=== PATIENT | female | born 1970 | race Caucasian/White ===

== ENCOUNTER → 2024-08-16 13:45 | Outpatient (REF) | payer OTHER, SELFPAY | LOC: PET 13:45 | PROVIDERS: ATTENDING PHYSICIAN Internal Medicine Interventional Cardiology | DX: R06.09 Other forms of dyspnea (principal) | CPT/HCPCS: 78431; A9555; J2785 ==

== ENCOUNTER → 2025-02-03 11:20 | Outpatient (REF) | payer OTHER, SELFPAY | LOC: HWRCS 11:20 | PROVIDERS: ATTENDING PHYSICIAN Internal Medicine Interventional Cardiology; FAMILY PHYSICIAN Internal Medicine | DX: I10 Essential (primary) hypertension (principal); E78.2 Mixed hyperlipidemia; I50.22 Chronic systolic (congestive) heart failure; Z86.79 Personal history of other diseases of the circulatory system | CPT/HCPCS: 93306 ==